=== PATIENT | male | born 1985 | race African-American/Black ===

== ENCOUNTER 2025-10-24 17:01 | Emergency (ER) | payer OTHER ==
[2025-10-24] MEDS ORDERED: Acetaminophen 325 MG TAB ONE ×2 (17:46→17:49)
== END 2025-10-24 18:20 ==
LOC: NAV ERS 17:01 → EEVIPCON 17:01 → NAV ERS 18:20
DX: S67.197A Crushing injury of left little finger, initial encounter (principal); S63.277A Dislocation of unspecified interphalangeal joint of left little finger, initial encounter; W23.1XXA Caught, crushed, jammed, or pinched between stationary objects, initial encounter
CPT/HCPCS: 26770